=== PATIENT | female | born 1950 | race Caucasian/White ===

== ENCOUNTER 2023-02-23 11:11 | Day surgery (SDC) | payer MEDICARE, BC, SELFPAY ==
[2023-02-23 11:23] VITALS: BMI 22.6
[2023-02-23] MEDS: TETRACAINE 0.5% OPHTH 1 DROP EYE-LEFT ×2 (11:25→11:30)
[2023-02-23] MEDS: KETOROLAC OPHTH 0.5% 1 DROP EYE-LEFT ×2 (11:28→11:33)
[2023-02-23] MEDS: SODIUM CHLORIDE 0.9 % (FLUSH) 10 ML SYRINGE IVF (11:30)
[2023-02-23 11:36] VITALS: BP 129/84; PULSE 63; RESP 16; TEMP 36.6; O2SAT 99
--- NOTE | 2023-02-23 12:33 | W.ANESCHARGE ---
Anesthesia Charges Start Date/Time Anesthesia Start Date: 02/23/23 Anesthesia Start Time: 12:42 Stop Date/Time Anesthesia Stop Date: 02/23/23 Anesthesia Stop Time: 13:13 Summary Extremes of Age - Over 70 or under 1: MDA
[2023-02-23] MEDS: TETRACAINE 0.5% OPHTH 2 DROP EYE-LEFT (12:44)
[2023-02-23] MEDS: BALANCED SALT IRRIG SOLN 15 ML EYE-LEFT (12:47)
--- NOTE | 2023-02-23 13:11 | W.ANESCHARGE ---
Anesthesia Charges Start Date/Time Anesthesia Start Date: 02/23/23 Anesthesia Start Time: 12:42 Stop Date/Time Anesthesia Stop Date: 02/23/23 Anesthesia Stop Time: 13:13
[2023-02-23 13:17] VITALS: BP 148/91; PULSE 66; RESP 16; TEMP 36.4; O2SAT 96
--- NOTE | 2023-02-23 13:49 | P.OPTPRC_ITS ---
Procedure Note Date of procedure: 02/23/23 Will [facility] bill your pro fee for this procedure?: Yes Procedure Description: SURGEON: Laura Weinberg MD PREOPERATIVE DIAGNOSIS: Nuclear sclerotic cataract, left eye. POSTOPERATIVE DIAGNOSIS: Nuclear sclerotic cataract, left eye. NAME OF OPERATION: Phacoemulsification of cataract with posterior chamber intraocular lens implantation in the left eye. ANESTHESIA: Topical. ESTIMATED BLOOD LOSS: Less than 2 cc. COMPLICATIONS: None. PATHOLOGY SPECIMEN: None. INDICATIONS: See consult note for details. The risks, benefits and alternatives of the procedure were explained to the patient, who elected to proceed and signed informed consent to do so. PROCEDURE: The patient was brought to the pre-holding area where the left eye was identified as the operative eye. I placed my initials above this eye. The patient received eye drops consisting of 0.5% tetracaine, 1% tropicamide, 10% phenylephrine, and 0.5% ketorolac. The patient was then brought to the operating room where the left eye was again identified as the operative eye. The eye was prepped with Betadine and draped in the usual sterile ophthalmic fashion. A #15 super-sharp blade was used to create a paracentesis site. 1% non-preserved intracameral lidocaine was injected into the anterior chamber. Endocoat was injected into the anterior chamber. A 2.4 mm keratome was used to create a three-plane self-sealing incision 1 mm anterior to the temporal limbus. A cystotome was used to create an anterior capsular leaflet. The Utrata forceps were used to extend this to form a continuous curvilinear capsulorrhexis. Hydrodissection was performed. The cataract was removed with phacoemulsification using the [id number] technique. The irrigation and aspiration tip was used to remove the remaining cortex. Healon was injected into the capsular bag. An KELLI ZCB00 intraocular lens of 22.5 diopters was injected into the capsular bag. The irrigation and aspiration tip was used to remove the remaining viscoelastic. Balanced salt solution on a cannula was used to hydrate the wound, and the wound was found to be watertight. The pupil was noted to be round. DISPOSITION: The patient was taken to the recovery room and discharged to home in stable condition. The patient was instructed to call me or go to the emergency department with any sudden change, including dramatic loss of vision, severe pain in the eye or eyebrow region, nausea, or vomiting. The patient will follow up in the clinic tomorrow morning. [employer] point
== END 2023-02-23 13:40 | disposition home or self-care (01) ==
PROVIDERS: PCP Family Medicine; Visit Provider Ophthalmology
PROC: (CPT 66984; principal; 2023-02-23 11:15)
DX: H25.12 Age-related nuclear cataract, left eye (principal)
CPT/HCPCS: 66984; 00142; 99100; A9270; J2250; J3010; V2632

== ENCOUNTER 2023-03-09 11:41 | Day surgery (SDC) | payer MEDICARE, BC, SELFPAY ==
--- OUTSIDE RECORDS SUMMARY | 2023-03-09 11:43 | XMS_ITS | Clinical Summary ---
Author Name Unknown Organization [facility] Address [place], [place] [address] Care Team Providers Care Rn Anesthesiology Name Role Phone Yash Alexander Unavailable Emmanuelle Sanderson DO Primary Care Provider [phone] Allergies Active Allergy Reactions Criticality Noted Date Comments House Dust Ragweed Runny Nose 11/25/2009 Medications Medication Sig Dispensed Refills Start Date End Date Status calcium carbonate (CALTRATE) 600 mg calcium (1,500 mg) tabletIndications:Os teopenia, unspecified location Take 2 tablets by mouth once daily with a meal. 180 tablet 3 03/08/2018 Active omega 1-ktp-wbb-fish oil 60-90-500 mg cap Take 500 mg by mouth. 0 Active glucosamine-chondroi tin, 500-400 mg, (COSAMIN DS 500/400) 500-400 mg cap Daily 0 Active cetirizine (ZYRTEC) 10 mg tablet Daily 0 Active montelukast (SINGULAIR) 10 mg tabletIndications:Al lergic rhinitis due to pollen, unspecified seasonality,Uncompli cated asthma, unspecified asthma severity, unspecified whether persistent Take 1 Tablet (10 mg) by mouth at bedtime. 90 Tablet 3 01/12/2023 Active albuterol HFA (ProAir HFA) 90 mcg/actuation inhalerIndications:U ncomplicated asthma, unspecified asthma severity, unspecified whether persistent Inhale 1 Puff by mouth every 4 hours if needed for Shortness Of Breath or Wheezing. 1 Each 1 01/12/2023 Active Blood Pressure Monitor KitIndications:[place] rachell BP without diagnosis of hypertension Frequency of testing: daily 1 Each 0 01/12/2023 Active Active Problems Problem Noted Date Diagnosed Date Right hip impingement syndrome 04/16/2015 Arthritis of right hip 04/16/2015 Overview: 2015 CDI MR arthrogram of right hip: multiple findings. 04/16/15: Dr. Vázquez did Ultrasound guided interarticular hip injection, great benefit for almost 2 years. May 2017: pain returning so return to physical therapy. June 2017: ultrasound guided injection to right hip Mar 2018: Right??hip joint injection under ultrasound guidance by Dr. Vázquez. Chronic pain of right hip 03/19/2015 Overview: 2015 CDI MR arthrogram of right hip: multiple findings. June 2017: ultrasound guided injection to right hip Adenomatous colon polyp 11/27/2014 Overview: Colonoscopy 11/2014 polyp repeat in 5 years Colonoscopy 01/2020 normal, repeat in 5 years Dry eye syndrome 01/31/2014 Overview: Diagnosed 2013 DDD (degenerative disc disease), cervical 2011 Allergic rhinitis, cause unspecified 02/11/2009 Osteopenia 09/13/2008 Overview: Last DXA 03/03/2016 consistent with osteopenia based on left and right femur and left femoral neck score. Recommended repeat in 2 years. Unspecified asthma(493.90) MIDSYSTOLIC CLICK Resolved Problems Problem Noted Date Diagnosed Date Resolved Date HIP PAIN 07/25/2007 Other and unspecified hyperlipidemia 07/25/2007 Encounters Date Type Department Care Team Description 02/23/2023 2:40 PM OCEAN BIOLOGIST Preop Visit [facility] [address] [place] [address] Alma Dominguez PA Preoperative Exam (02/23/23-left eye, 03/09/23 right eye [facility]) 02/23/2023 Travel 01/12/2023 8:20 AM OCEAN BIOLOGIST Office Visit [facility] [address] [place] [address] Emmanuelle Sanderson DO Medicare ANNUAL (subsequent) Visit (72 year old wellness) 01/12/2023 Travel 12/08/2022 1:40 PM CDT Ancillary Procedure [facility] [address] [place] [address] 12/08/2022 Travel from Last 3 Months Immunizations Name Administration Dates Next Due AMB INFLUENZA IIV3 (AGE 65+ YRS) PF (Flu Clinic Only) 12/08/2017 AMB Influenza, IIV4 PF (=>6 mos Flulaval,Fluzone Fluarix)(Flu Clinic Only) 12/16/2016,12/20/2014 COVID-19 Vaccine Spikevax (M oderna 50mcg/0.5mL) 12YO+ [id number] Formula PF 12/30/2022 COVID-19 vaccine (Pfizer-Bio NTech 30mcg/0.3mL) 12YO+ BIVALENT PF, MDV 12/16/2021 COVID-19 vaccine (Pfizer-Bio NTech 30mcg/0.3mL) 12YO+ YOLANDA-SUCROSE PF, MDV 09/21/2021 COVID-19 vaccine (Yipit-Bio NTech 30mcg/0.3mL) PF, MDV 11/19/2020,04/29/2020,04/08/2020 Influenza Virus, Unspecified 12/25/2013 Influenza, High-dose Inactivated 12/20/2018 Influenza, High-dose Quadriv alent Inactivated 11/28/2019 Influenza, IIV4 03/16/2016 Influenza, Inactivated AIIV4 (Age 65+ Years) Preserv Free 12/30/2022,12/16/2021,12/19/2020 Pneumococcal Poly,23-Valent (Pneumovax) 08/15/19 20 Pneumococcal conj 13-Valent (Prevnar 13) 019 Td (Age >=7 Years) 09/02/2004 Tdap 08/25/2011 Zoster (Shingrix-RZV, recombinant) 03/17/2021, Zoster (Zostavax-ZVL, live) 06/11/2014 Family History Medical History Relation Name Comments Arthritis Brother Arthritis Father Heart Disease Father h/o ID with tr iple by-pass Other Father colon polyps Arthritis Mother inflammatory a rthritis Osteoporosis Mother Other Mother trigeminal neur algia Osteoporosis Sister 1 Fatimah Osteoporosis Sister 2 Elba Other Sister 2 Elba volvulus Anesthesia Malignant Hyperthermia No Family History Anesthesia Problem No Family History Cancer-breast No Family History Cancer-ovarian No Family History Relation Name Status Comments Brother Alive Father (Age 91) Mother Sister 1 Fatimah Alive Sister 2 Elba Alive Social History Tobacco Use Types Packs/Day Years Used Date Smoking Tobacco: Never Smokeless Tobacco: Never Tobacco Cessation:Counseling Given: Yes Alcohol Use Standard Drinks/Week Comments Yes 0 (1 standard drink = 0.6 oz pur e alcohol) PHQ-2 Answer Date Recorded PHQ-2 TOTAL SCORE 0 01/12/2023 Social Connections Answer Date Recorded Frequency of Communication with Friends and Fami ly 0 01/12/2023 Alcohol Use Answer Date Recorded How often do you have a drink containing alcohol ? 4 02/23/2023 How many drinks containing a lcohol do you have on a typical day when you are drinking? 0 02/23/2023 How often do you have five or more drinks on one occasion? 0 02/23/2023 Financial Resource Strain Answer Date R ecorded Difficulty of Paying Living Expenses 3 01/12/2023 Difficulty of Paying Living Expenses Not on file 01/12/2023 Food Insecurity Answer Date Recorded Worried About Running Out of Food in the Last Ye ar 1 01/12/2023 Transportation Needs Answer Date Record ed Lack of Transportation (Medical) 1 01/12/2023 Housing Stability Answer Date Recorded Unable to Pay for Housing in the Last Year 1 01/12/2023 Sex and Gender Information Value Date Recorded Sex Assigned at Not on file Gender Identity Not on file Sexual Orientation Not on file Obstetrics History Para Term AB IAB SAB Ectopic Multiple Livin g Live Births 2 2 2 2 2 Date Outcome GA Total Labor Labor/2nd/3rd Weight Sex Delivery Anes PTL Guillermina A1 A5 Name Cl in Term Afshan ng Term Afshan ng Last Filed Vital Signs Vital Sign Reading Time Taken Comments Blood Pressure 132/82 02/23/2023 8:46 AM OCEAN BIOLOGIST Pulse 63 02/23/2023 8:46 AM OCEAN BIOLOGIST Temperature 36.5 ??C (97.7 ??F) 02/23/2023 8:46 AM CS T Respiratory Rate 12 08/23/2018 8:57 AM CDT Oxygen Saturation 98% 02/23/2023 8:46 AM OCEAN BIOLOGIST Inhaled Oxygen Concentration - - Weight 59.9 kg (132 lb) 02/23/2023 8:46 AM OCEAN BIOLOGIST Height 163.8 cm (5' 4.5) 02/23/2023 8:46 AM OCEAN BIOLOGIST Body Mass Index 22.31 02/23/2023 8:46 AM OCEAN BIOLOGIST Plan of Treatment Health Maintenance Due Date Last Done Comments Tetanus booster 08/24/2021 08/25/2011, 09/02/2004 Mammogram for age 45-75 12/09/2023 12/09/19, 11/17/2021, 10/08/2020, Additional history exists Medicare Wellness for age 65+ 01/12/2024, 12/16/2021, 09/30/2020, Additional history exists Depression screening for age 12+ 01/13/2024 01/12/2023, 12/16/2021, 09/30/2020, Additional history exists BMI (ht and wt on same day) for age 18+ 02/24/2024 02/23/2023, 01/12/2023, 12/16/2021, Additional history exists Colonoscopy through age 75 01/23/202501/23, 01/24/2020, 11/26/2014, Additional history exists Lipids for age 45-75 01/13/2028 01/12/2023, 09/30/2020, 04/28/2017, Additional history exists Tdap Completed 08/25/2011 Hepatitis C screening for ag e 18-79 Completed 10/17/2018 Pneumococcal series for age 65+ Completed , 03/08/2018 DEXA/DXA scan for age 65+ Completed 2019, 04/01/2016, 06/11/2014, Additional history exists Zoster (shingles) series for age 50+ Completed 03/17/2021, 10/03/2020, 06/11/2014 COVID-19 vaccine series Completed 12/31/19, 12/16/2021, 09/21/2021, Additional history exists Influenza for age 65+ Completed 12/30/2022 , 12/16/2021, 12/19/2020, Additional history exists Procedures Procedure Name Priority Date/Time Associated Diagnosis Comments VITAMIN D 25 (DEFICIENCY) Routine 01/12/2023 9:42 AM OCEAN BIOLOGIST Osteopenia, unspecified location LIPID PANEL W REFLEX MEASURED LDL Routine 01/12/2023 9:42 AM OCEAN BIOLOGIST Lipid screening BASIC METABOLIC PANEL Routine 01/12/2023 9:42 AM OCEAN BIOLOGIST Elevated BP without diagnosis of hypertension XR MAMMO MEET BILAT SCREEN Routine 12/08/2022 1:49 PM CDT Visit for screening mammogram from Last 3 Months Results * (ABNORMAL) LIPID PANEL W REFLEX MEASURED LDL (01/12/2023 9:42 AM OCEAN BIOLOGIST) CHOLESTEROL,TOTAL 257(H) 100 - 199 mg/dL 01/12/2023 7:02 PM OCEAN BIOLOGIST [facility] [employer] Comment: Cholesterol, Total Reference Ranges Desirable <200 mg/dL Borderline 200-239 mg/dL High >=240 mg/dL TRIGLYCERIDES 42 <150 mg/dL 01/12/2023 7:02 PM OCEAN BIOLOGIST [facility] [place] LAB[facility] HDL CHOLESTEROL 109 >40 mg/dL 7:02 PM OCEAN BIOLOGIST [facility] NON-HDL CHOLESTEROL 148(H) <145 mg/dl 01/12/2023 7:02 PM OCEAN BIOLOGIST [facility] CHOL/HDL RATIO 2.36 <4.50 01/12/2023 7:02 PM OCEAN BIOLOGIST [facility] LDL CHOLESTEROL 140(H) <=130 mg/dL 01/12/2023 7:02 PM OCEAN BIOLOGIST [facility] VLDL CHOLESTEROL 8 <=30 mg/dL 01/12/2023 7:02 PM OCEAN BIOLOGIST [facility] PROVIDER ORDERED STATUS RANDOM 01/12/2023 7:02 PM OCEAN BIOLOGIST [facility] Blood BLOOD SPECIMEN / Unknown Venipuncture / Unknown 01/12/2023 9:42 AM OCEAN BIOLOGIST 01/12/2023 9:45 AM OCEAN BIOLOGIST Emmanuelle Sanderson DO [facility]Y [facility] [address] [place] [address], * VITAMIN D 25 (DEFICIENCY) (01/12/2023 9:42 AM OCEAN BIOLOGIST) Pathologist [facility] VITAMIN D TOTAL 66.5 20.0 - 80.0 ng/mL 01/12/2023 7:02 PM [facility] Blood BLOOD SPECIMEN / Unknown Venipuncture / Unknown 01/12/2023 9:42 AM OCEAN BIOLOGIST 01/12/2023 9:45 AM OCEAN BIOLOGIST Narrative [facility] - 01/12/2023 7:02 PM OCEAN BIOLOGIST ? Vitamin D Status Deficiency: ? <20 ng/mL Insufficiency: ?20-29 ng/mL Sufficiency: ?30-80 ng/mL Possible Toxicity: ??>80 ng/mL Based on [place] of Medicine recommendations Biotin supplements may cause clinically significant interference for this test assay. ??If interference is suspected, it is strongly recommended that biotin is discontinued for at least one week prior to retesting. Emmanuelle Sanderson DO SEND OUTS [facility] [address] [place] [address] * (ABNORMAL) BASIC METABOLIC PANEL (01/12/2023 9:42 AM OCEAN BIOLOGIST) Pathologist [facility] SODIUM 142 136 - 145 mmol/L 01/12/2023 7:02 PM [facility] POTASSIUM 4.3 3.5 - 5.1 mmol/L 01/12/2023 7:02 PM [facility] CHLORIDE 105 98 - 107 mmol/L 01/12/2023 7:02 PM [facility] CO2,TOTAL 23 22 - 29 mmol/L 01/12/2023 7:02 PM [facility] ANION GAP 14 5 - 18 01/12/2023 7:02 PM [facility] GLUCOSE 96 70 - 99 mg/dL 01/12/2023 7:02 PM [facility] CALCIUM 9.2 8.8 - 10.2 mg/dL 01/12/2023 7:02 PM [facility] BUN 19 8 - 23 mg/dL 01/12/2023 7:02 PM [facility] CREATININE 0.86 0.50 - 0.90 mg/dL 01/12/2023 7:02 PM [facility] BUN/CREAT RATIO 22(H) 10 - 20 7:02 PM [facility] eGFR 73(L) >90 mL/min/1.7 3m2 01/12/2023 7:02 PM [facility] Comment:As of 2021, eG FR is calculated by the CKD-EPI creatinine equation without race adjustment. ??eGFR can be influenced by muscle mass, exercise, and diet. ??The reported eGFR is an estimation only and is only applicable if the renal function is stable. Blood BLOOD SPECIMEN / Unknown Venipuncture / Unknown 01/12/2023 9:42 AM OCEAN BIOLOGIST 01/12/2023 9:45 AM OCEAN BIOLOGIST Emmanuelle Sanderson DO [facility]MI[facility] [address] [place] [address], [place] * XR MAMMO MEET BILAT SCREEN (12/08/2022 1:49 PM CDT) Anatomical Region Laterality Modality BREASTS, Breast Left, Breast Right Bilateral Mammography Impressions 12/08/2022 2:53 PM CDT ??There is no radiographic evidence for malignancy. ??Recommend annual mammograms. MAMMOGRAM ASSESSMENT: ??ACR 1 Negative PATIENTS: You will also receive a letter with your examination results in an easy to read format. ??If you have questions about your results, please contact your referring provider. Narrative 12/08/2022 2:53 PM CDT For Patients: As a result of the Century Cures Act, medical imaging exams and procedure reports are released immediately into your electronic medical record. You may view this report before your referring provider. If you have questions, please contact your health care provider. XR MAMMO MEET BILAT SCREEN [[id number]] CLINICAL HISTORY: ??This is an asymptomatic 72 y.o. patient. INDICATION FOR EXAM: Mammogram Screening. TECHNIQUE: CC & MLO views were obtained. ??This study was evaluated with the assistance of Computer-Aided Detection. Breast Tomosynthesis was used in interpretation. COMPARISON FILM: Yes 11/17/21 [facility] 10/08/20 [facility] FINDINGS: ??The breasts have scattered areas of fibroglandular density. There are no dominant masses, suspicious micro calcifications or areas of architectural distortion. Emmanuelle Sanderson DO MAMMO from Last 3 Months Care Teams Rn Anesthesiology Relationship Specialty Start Date End Date Emmanuelle Sanderson DO [address] [place] [id number] PCP - General Family Practice 03/08/18 Yash Alexander [id number] [facility] [id number] Rn Mobile 01/31/14
[2023-03-09] MEDS: KETOROLAC OPHTH 0.5% 1 DROP EYE-RIGHT ×2 (11:45→11:50)
[2023-03-09] MEDS: TETRACAINE 0.5% OPHTH 1 DROP EYE-RIGHT ×2 (11:45→11:50)
--- NOTE | 2023-03-09 11:51 | SUR.PREOP ---
The eye drops brought by the patient (Ketorolac, Ofaxacin, and Prednisolone) are examined and I have determined they are labeled by the patient's pharmacy for this patient as prescribed by the surgeon. The bottles are intact, recently obtained and appear to be correct.
[2023-03-09 11:56] VITALS: BP 113/76; PULSE 63; RESP 16; TEMP 36.6; O2SAT 99; BMI 22.6
[2023-03-09] MEDS: SODIUM CHLORIDE 0.9 % (FLUSH) 10 ML SYRINGE IVF (12:08)
--- NOTE | 2023-03-09 12:39 | W.ANESCHARGE ---
Anesthesia Charges Start Date/Time Anesthesia Start Date: 03/09/23 Anesthesia Start Time: 12:55 Stop Date/Time Anesthesia Stop Date: 03/09/23 Anesthesia Stop Time: 13:28 Summary Extremes of Age - Over 70 or under 1: MDA
[2023-03-09] MEDS: TETRACAINE 0.5% OPHTH 2 DROP EYE-RIGHT (12:55)
[2023-03-09] MEDS: BALANCED SALT IRRIG SOLN 15 ML EYE-RIGHT (13:00)
--- NOTE | 2023-03-09 13:27 | P.ANES_ITS ---
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
--- NOTE | 2023-03-09 13:28 | P.OPTPRC_ITS ---
Procedure Note Date of procedure: 03/09/23 Will [facility] bill your pro fee for this procedure?: Yes Procedure Description: SURGEON: Laura Weinberg MD PREOPERATIVE DIAGNOSIS: Nuclear sclerotic cataract, right eye. POSTOPERATIVE DIAGNOSIS: Nuclear sclerotic cataract, right eye. NAME OF OPERATION: Phacoemulsification of cataract with posterior chamber intraocular lens implantation in the right eye. ANESTHESIA: Topical. ESTIMATED BLOOD LOSS: Less than 2 cc. COMPLICATIONS: None. PATHOLOGY SPECIMEN: None. INDICATIONS: See consult note for details. The risks, benefits and alternatives of the procedure were explained to the patient, who elected to proceed and signed informed consent to do so. PROCEDURE: The patient was brought to the pre-holding area where the right eye was identified as the operative eye. I placed my initials above this eye. The patient received eye drops consisting of 0.5% tetracaine, 1% tropicamide, 10% phenylephrine, and 0.5% ketorolac. The patient was then brought to the operating room where the right eye was again identified as the operative eye. The eye was prepped with Betadine and draped in the usual sterile ophthalmic fashion. A #15 super-sharp blade was used to create a paracentesis site. 1% non-preserved intracameral lidocaine was injected into the anterior chamber. Endocoat was injected into the anterior chamber. A 2.4 mm keratome was used to create a three-plane self-sealing incision 1 mm anterior to the temporal limbus. A cystotome was used to create an anterior capsular leaflet. The Utrata forceps were used to extend this to form a continuous curvilinear capsulorrhexis. Hydrodissection was performed. The cataract was removed with phacoemulsification using the [id number] technique. The irrigation and aspiration tip was used to remove the remaining cortex. Healon was injected into the capsular bag. An KELLI ZCB00 intraocular lens of 22.5 diopters was injected into the capsular bag. The irrigation and aspiration tip was used to remove the remaining viscoelastic. Balanced salt solution on a cannula was used to hydrate the wound, and the wound was found to be watertight. The pupil was noted to be round. DISPOSITION: The patient was taken to the recovery room and discharged to home in stable condition. The patient was instructed to call me or go to the emergency department with any sudden change, including dramatic loss of vision, severe pain in the eye or eyebrow region, nausea, or vomiting. The patient will follow up in the clinic tomorrow morning.
[2023-03-09 13:30] VITALS: BP 126/81; PULSE 58; RESP 16; TEMP 36.3; O2SAT 99
== END 2023-03-09 13:42 | disposition home or self-care (01) ==
LOC: OR 11:41
PROVIDERS: PCP Family Medicine; Visit Provider Ophthalmology
PROC: (CPT 66984; principal; 2023-03-09 12:00)
DX: H25.11 Age-related nuclear cataract, right eye (principal)
CPT/HCPCS: 66984; 00142; 99100; A9270; J2250; J3010; V2632